=== PATIENT | female | born 1980 | race Caucasian/White ===

== ENCOUNTER 2016-11-18 21:20 | Emergency (ER) | payer OTHER | END 2016-11-19 01:17 | disposition home or self-care (01) | LOC: ER 21:20 | DX: S70.02XA Contusion of left hip, initial encounter (principal); S80.02XA Contusion of left knee, initial encounter; W01.0XXA Fall on same level from slipping, tripping and stumbling without subsequent striking against object, initial encounter; Y92.239 Unspecified place in hospital as the place of occurrence of the external cause; F17.210 Nicotine dependence, cigarettes, uncomplicated; M41.9 Scoliosis, unspecified; Z79.899 Other long term (current) drug therapy; Z88.0 Allergy status to penicillin | CPT/HCPCS: 73502; 73564; 96372; 99283-25 ==